=== PATIENT | male | born 1940 | race Caucasian/White ===

== ENCOUNTER → 2017-02-11 | Outpatient (CLI) | payer OTHER ==
--- NOTE | 2017-02-11 15:58 | RADRPT ---
EXAM DATE/TIME: 02/11/2017 13:13 [place] COMPARISON: No previous studies available for comparison. INDICATIONS : Right sided tremors. Parkinsons. DOSE: 4.89 mCi Ioflupane Iodine-123 in 2.5 ml total volume MEDICATION(S): 130 mg Potasium Iodine PO one hour prior to injection SPECT IMAGIN.5 hrs. IMAGNG: SPECT/CT imaging with fusion was performed. RADIATION DOSE: 30.27 CTDIvol (mGy) MEDICAL HISTORY : Hypertension. Diabetes mellitus type 2. Skin cancer. SURGICAL HISTORY : Right knee, hernia repair, cervical spine surgery and back surgery. ENCOUNTER: Initial ACUITY: 1 yr PAIN SCALE: 0/10 LOCATION: Head. TECHNIQUE: SPECT imaging of the brain was performed in sagittal, axial and coronal planes. Attenuation correctio n was performed with computed tomography and both the attenuation correction and non-attenuation ruby ected data sets were reviewed. FINDINGS: There is normal biodistribution of radionuclide with symmetric crescent-shaped areas of activity are in the striatum which appears distinct relative to the surrounding brain tissue. CONCLUSION: 1. Normal dopamine transporter scan Keyon Thomas MD on February 11, 2017 at 15:55 Board Certified Radiologist. This report was verified electronically.
== END ==
LOC: HRAD 09:06
DX: I63.9 Cerebral infarction, unspecified (principal); G25.0 Essential tremor; F03.90 Unspecified dementia, unspecified severity, without behavioral disturbance, psychotic disturbance, mood disturbance, and anxiety; G20 Parkinson's disease
CPT/HCPCS: 78607; A9584